=== PATIENT | male | born 1955 | race Caucasian/White ===

== ENCOUNTER → 2017-12-09 | Outpatient (CLI) | payer OTHER ==
--- NOTE | 2017-12-09 12:25 | RAD ---
Right upper quadrant abdominal ultrasound, 12/09/2017: HISTORY: Elevated liver enzymes The gallbladder is within normal limits in size. There is no sonographic evidence of cholelithiasis. The gallbladder wall is not thickened. The common hepatic duct is of normal caliber. The liver demonstrates increased echogenicity, most commonly due to fatty change. No hepatic mass is evident. The pancreas was not adequately visualized due to overlying bowel. IMPRESSION: 1. No significant gallbladder abnormality is detected. 2. Increased hepatic echogenicity suggesting fatty change. Electronically signed by: Robel Cochran MD (12/09/2017 12:22 PM) [facility]
== END | disposition home or self-care (01) ==
LOC: US 07:35
DX: R94.5 Abnormal results of liver function studies (principal)
CPT/HCPCS: 76705